=== PATIENT | female | born 1975 | race Caucasian/White ===

== ENCOUNTER 2018-11-23 22:07 | Emergency (ER) | payer OTHER ==
[~2018-11-23] VITALS: Ht 167.6 cm; Wt 105.8 kg
[2018-11-23 22:19] VITALS: Ht 167.6 cm; Wt 105.8 kg
[2018-11-24] MEDS ORDERED: morphine 4 MG/ML VIAL IV STA (00:01)
[2018-11-24] MEDS ORDERED: SOD CHLORIDE 0.9% 1,000 ML IV STA (00:01)
[2018-11-24] MEDS ORDERED: ONDANSETRON 4 MG INJ IV STA (00:01)
--- NOTE | 2018-11-24 00:13 | ERD ---
ER Documentation Chief Complaint Chief Complaint PELVIC PAIN, VAG BLEEDING, CRAMPING X'S 1 DAY HPI 43-year-old female presents with complaint of vaginal bleeding and cramping for the past day. States that she has been through 20 pads since 8 AM this morning. States her last menstrual period was October 15 and she thinks that she is having her period now but is heavier than usual. States that she had surgery so she cannot get . Denies any lightheadedness, chest pain, fevers, chills, vomiting, diarrhea. History of hypertension. ROS All systems reviewed and are negative except as per history of present illness. Medications Home Meds Active Scripts Norethindrone (Aygestin) 5 Mg Tab, 5 MG PO TID for 30 Days, #60 TAB Take 5mg PO TID for 3 days, then 5mg PO BID for 3 weeks or until your electronic tester stops treatments. Prov:SIRILORENZOARMIDA 11/24/18 Allergies Allergies: Coded Allergies: No Known Drug Allergies (Verified Allergy, Mild, 04/02/11) PMhx/Soc History of Surgery: Yes (CSECTION; HERNIA; TUBAL LIGATION) Anesthesia Reaction: No Hx Neurological Disorder: No Hx Respiratory Disorders: No Hx Cardiac Disorders: No Hx Psychiatric Problems: No Hx Miscellaneous Medical Probl: No Hx Alcohol Use: No Hx Substance Use: No Hx Tobacco Use: No Smoking Status: Never smoker FmHx Family History: No diabetes, No coronary disease, No other Physical Exam Vitals Vital Signs Date Temp Pulse Resp B/P (MAP) Pulse Ox O2 O2 Flow FiO2 Time Delivery Rate 11/24/18 97.8 63 18 134/84 97 05:46 (101) 11/24/18 98.0 61 159/81 99 Room Air 04:04 (107) 11/23/18 99.2 88 18 173/79 98 22:19 (110) Physical Exam Const: No acute distress Head: Atraumatic Eyes: Normal Conjunctiva ENT: Normal External Ears, Nose and Mouth. Neck: Full range of motion. No meningismus. Resp: Clear to auscultation bilaterally Cardio: Regular rate and rhythm, no murmurs Abd: Abdomen is diffusely tender to palpation with guarding especially in the lower right lower left quadrants. Skin: No petechiae or rashes Back: No midline or flank tenderness Ext: No cyanosis, or edema Neur: Awake and alert Psych: Normal Mood and Affect Pelvic Exam: Copper Plate Lithographer present Abdomen: Nontender External Genitalia: Normal Skin Speculum: Normal vaginal mucosa. Blood noted pooling in the cervical area. Os is closed. Bimanual: No adnexal masses or tenderness, No CMT Result Diagram: 11/24/18 0023 11/24/18 0023 Results 24 hrs Laboratory Tests Test 11/24/18 00:23 11/24/18 00:24 White Blood Count 10.5 10^3/ul Red Blood Count 4.44 10^6/ul Hemoglobin 12.2 g/dl Hematocrit 37.8 % Mean Corpuscular Volume 85.1 fl Mean Corpuscular Hemoglobin 27.5 pg Mean Corpuscular Hemoglobin Concent 32.3 g/dl Red Cell Distribution Width 15.6 % Platelet Count 294 10^3/UL Mean Platelet Volume 9.6 fl Immature Granulocytes % 0.300 % Neutrophils % 77.1 % Lymphocytes % 13.9 % Monocytes % 7.0 % Eosinophils % 1.4 % Basophils % 0.3 % Nucleated Red Blood Cells % 0.0 /100WBC Immature Granulocytes # 0.030 10^3/ul Neutrophils # 8.1 10^3/ul Lymphocytes # 1.5 10^3/ul Monocytes # 0.7 10^3/ul Eosinophils # 0.2 10^3/ul Basophils # 0.0 10^3/ul Nucleated Red Blood Cells # 0.0 10^3/ul Urine Test NEGATIVE Sodium Level 138 mmol/L Potassium Level 3.8 mmol/L Chloride Level 104 mmol/L Carbon Dioxide Level 26 mmol/L Anion Gap 8 Blood Urea Nitrogen 11 mg/dl Creatinine 0.47 mg/dl Est Glomerular Filtrat Rate mL/min > 60 mL/min Glucose Level 112 mg/dl Hemoglobin A1c 5.8 % Calcium Level 8.6 mg/dl Total Bilirubin 0.8 mg/dl Direct Bilirubin 0.00 mg/dl Indirect Bilirubin 0.8 mg/dl Aspartate Amino Transf (AST/SGOT) 17 IU/L Alanine Aminotransferase (ALT/SGPT) 24 IU/L Alkaline Phosphatase 48 IU/L Total Protein 7.0 g/dl Albumin 4.2 g/dl Globulin 2.80 g/dl Albumin/Globulin Ratio 1.50 Lipase 65 U/L Thyroid Stimulating Hormone (TSH) 1.210 MIU/L Urine Color YELLOW Urine Clarity SLIGHTLY CLOUDY Urine pH 6.0 Urine Specific [place] 1.015 Urine Ketones NEGATIVE mg/dL Urine Nitrite NEGATIVE mg/dL Urine Bilirubin NEGATIVE mg/dL Urine Urobilinogen NEGATIVE mg/dL Urine Leukocyte Esterase NEGATIVE Kade/ul Urine Microscopic RBC > 182 /HPF Urine Microscopic WBC 4 /HPF Urine Mucus FEW /HPF Urine Hemoglobin 3+ mg/dL Urine Glucose NEGATIVE mg/dL Urine Total Protein NEGATIVE mg/dl Current Medications Medications Dose Sig/Kraig Start Time Status Last (Trade) Ordered Route PRN Stop Time Admin Dose Reason Admin Sodium 1,000 ml @ Q1H STAT 11/24/18 DC 11/24/18 Chloride 1,000 mls/hr IV 00:01 01:16 11/24/18 01:00 Morphine 4 mg ONCE STAT 11/24/18 DC 11/24/18 Sulfate IV 00:01 01:10 (morphine) 11/24/18 00:05 Ondansetron 4 mg ONCE STAT 11/24/18 DC 11/24/18 HCl (Zofran IV 00:01 01:09 Inj) 11/24/18 00:05 Ibuprofen 600 mg ONCE ONCE 11/24/18 DC 11/24/18 (Motrin) PO 00:30 01:09 11/24/18 00:31 IV Flush 10 ml STK-MED 11/24/18 DC (NS 10 ml) ONCE .ROUTE 01:23 11/24/18 01:24 Sodium 100 ml @ ud STK-MED 11/24/18 DC Chloride ONCE .ROUTE 01:23 11/24/18 01:24 Iohexol 150 ml STK-MED 11/24/18 DC (Omnipaque ONCE .ROUTE 01:23 300mg/ ml) 11/24/18 01:24 Procedures/MDM DIAGNOSTIC IMAGING REPORT Patient: MIRANDA FORTE : 1975 Age: 43 Sex: F MR #: [id number] DOS: 11/24/18 0001 Ordering MD: ARMIDA WOODS Location: E Room/Bed: PROCEDURE: CT Abdomen and pelvis with contrast. CLINICAL INDICATION: Abdominal pain. TECHNIQUE: CT scan of the abdomen and pelvis with contrast was performed on a multi-detector high-resolution CT scanner. The patient was scanned following the uncomplicated administration of 100 cc of Omnipaque 300 intravenous contrast. Coronal and sagittal reformatted images were obtained from the axial source images. Images were reviewed on a high-resolution PACS workstation. DICOM images are available. One or more of the following dose reduction techniques were used: - Automated exposure control. - Adjustment of the mA and/or kV according to patient size. - Use of iterative reconstruction technique. Exam CTD/vol = 22.70 mGy. Total exam DLP = 1510.75 mGy-cm. COMPARISON: None. FINDINGS: Evaluation of the lung bases demonstrates minimal bibasilar atelectasis. Abdomen: The liver is normal in size. There is no focal mass or dilatation of the biliary tree. The gallbladder is not distended. The spleen, pancreas and bilateral adrenal glands are within normal limits. Bilateral kidneys are normal in size with symmetric enhancement. There is no focal mass, hydronephrosis or hydroureter. There is no retroperitoneal adenopathy. The abdominal aorta is of normal caliber. There is no abnormal bowel wall thickening or distension. There is no bowel obstruction or free air. A normal appendix is identified. There is no diverticulosis or diverticulitis. There is no ascites. Pelvis: The bladder is unremarkable. There is heterogeneous decreased attenuation within the lower endocervical canal. There is no significant pelvic adenopathy or free fluid. Evaluation of the osseous structures demonstrates no suspicious lytic or blastic lesion. IMPRESSION: Heterogeneous decreased attenuation within the lower endocervical canal suggestive of blood/blood clots or mass. Clinical correlation is needed. Otherwise no acute abnormality identified within the abdomen and pelvis. .Guevara Da Silva MD, MD Date Time Electronically viewed and signed by .Guevara Da Silva MD, MD on 11/24/2018 02:29 .T/ CC: ARMIDA WOODS [id number] DIAGNOSTIC IMAGING REPORT Patient: MIRANDA FORTE : 1975 Age: 43 Sex: F MR #: [id number] DOS: 11/24/18 0001 Ordering MD: ARMIDA WOODS Location: FT Room/Bed: PROCEDURE: US Pelvis. CLINICAL INDICATION: Pelvic pain TECHNIQUE: Multiple sonographic images of the pelvis were obtained utilizing a transabdominal and endovaginal technique. The images were reviewed on a PACS workstation. COMPARISON: None. FINDINGS: The uterus measures 6.0 x 3.2 x 3.9 cm. Heterogeneous appearance of the endome trium which measures 2.1 cm thickness. There is trace fluid within the endometrial canal. No abnormal vascularity is seen on color-flow imaging. Bilateral ovaries not visualized. No adnexal lesions identified. No pelvic free fluid. IMPRESSION: 1. Heterogeneous appearance of the endometrium measuring 2.1 cm thickness, nonspecific. Trace fluid within the endometrial cavity. 2. Ovaries not visualized. No pelvic free fluid. RPTAT: [facility] Physician Audrey Date Time Electronically viewed and signed by Physician Audrey on 11/24/2018 02:08 xB/ CC: ARMIDA WOODS [id number] MDM: Given patient's presentation of acute pelvic pain decision was made to order CT of pelvis with contrast. Results are within normal limits. Because of patient's bleeding, ultrasound of pelvis was ordered and showed endometrial thickening but no other pathology. Patient's vitals are stable throughout the ER course and exhibit no signs of symptomatic anemia or shock. However, given patient's complaint of going through 20 pads since 8 AM the substantial amount of blood seen on the pelvic exam in the vaginal area, I decided to consult with the OB on-call Dr. Arana. Dr Arana came and assessed the patient and stated patient would be fit for discharge with a several week course of Aygestin and she should need to follow-up with her OB for endometrial biopsy. In addition, Dr. Arana wanted to tests patient's TSH, prolactin, and A1c but stated patient would be fit for discharge before results would be available. I related to patient that she needed to follow-up with OB as soon as possible for endometrial biopsy and patient agreed to this and stated that she would. I have low suspicion for symptomatic anemia, shock, ectopic , ovarian torsion, PID, tubo-ovarian abscess, uterine prolapse, ovarian cancer, uterine cancer, nephrolithiasis, pyelonephritis, appendicitis, diverticulitis, bowel obstruction, perirectal abscess. In addition, I recommended the patient to take [id number] iron is they could counteract any future anemia. At this time, patient is stable for discharge and outpatient management. I have instructed the patient to follow-up with his/her primary care physician in 1-2 days. I have discussed with the patient the possibility of needing to see a specialist for further workup and imaging studies if symptoms persist. I have instructed the patient to promptly return to the ER for any new or worsening symptoms including but not limited to increased pain, fever, nausea, vomiting, weakness or LOC. The patient and/or family expressed understanding of and agreement with this plan. All questions were answered. Home care instructions were provided. DISCLAIMER: Inadvertent spelling and grammatical errors are likely due to EHR/dictation software use and do not reflect on the overall quality of patient care. Also, please note that the electronic time recorded on this note does not necessarily reflect the actual time of the patient encounter. Departure Diagnosis: Primary Impression: Menorrhagia Menorrahagia type: with regular cycle Qualified Codes: N92.0 - Excessive and frequent menstruation with regular cycle Additional Impression: Acute pain in female pelvis Condition: ARMIDA Grover Nov 24, 2018 00:13
[2018-11-24] MEDS ORDERED: IBUPROFEN 600 MG TAB PO ONE (00:30)
[2018-11-24] MEDS ORDERED: IOHEXOL 300MG/ML 150 ML BTL ONE (01:23)
[2018-11-24] MEDS ORDERED: SOD CHLORIDE 0.9% 100 ML ONE (01:23)
[2018-11-24] MEDS ORDERED: NORE5TAB15 PO (04:54)
[2018-11-24 05:46] VITALS: BP 134/84; PULSE 63; RESP 18
--- NOTE | 2018-11-24 13:51 | CONS ---
Assessment/Plan Assessment/Plan Hospital Course (Demo Recall) Menometrorrhagia Abdominal pain, cramps Symptoms appears to be related to perimenopausal anovulation, cannot rule out thyroid abnormalities since the patient complains of also excess weight gain At this time patient hemodynamically stable. Bleeding significantly subsided. She was ambulatory without any symptom. Her vitals are stable. Hemoglobin within normal limits. Patient does not appear to be in any distress. Patient will be discharged home with prescription with Aygestin 5 mg 3 times daily for 3 days and then twice a day with a follow-up within 2 to 3 days with primary PRINCIPAL ACCOUNT CLERK office. Is a candidate for endometrial biopsy. At risk for endometrial cancer due to body habitus as well as premenopausally status and history of irregular menopausal bleeding. Patient verbalized understanding. Advised to take iron twice a day with stool softener Consultation Date/Type/Reason Admit Date/Time Late entry note for exam done for November 24, 2018 I was consulted by ED physician emergency veterinary assistant for PRINCIPAL ACCOUNT CLERK evaluation Date of Consultation: Nov 24, 2018 Type of Consult PRINCIPAL ACCOUNT CLERK evaluation Reason for Consultation Heavy vaginal bleeding Date/Time of Note DATE: 11/24/18 TIME: 13:40 Hx of Present Illness 43-year-old G6, P3 obese female presented to emergency room with complaint of cramps and very heavy vaginal bleeding started since yesterday. Patient reports had been changing pads every 30 minutes. She reports history of irregular cycles. Cycles had been between 4 to 7 days in a while. Also complaining of excess weight gain although has been trying to lose weight with the diet and exercise. Denies any shortness of breath or chest pain, dizziness lightheadedness. Never had any evaluation for irregular menstrual bleeding including an atrial biopsy. Never been tested for thyroid abnormality. She was seen by PA in the emergency room and during speculum examination noted to have heavy vaginal bleeding. I was called for PRINCIPAL ACCOUNT CLERK consultation. Had a pelvic ultrasound that consistent shows heterogeneous endometrium with thickened endometrial lining and some fluid inside the uterine cavity. Adnexa normal. No other pathology noted. When I arrived and assessed the patient patient appeared to be in no acute distress and was comfortable. She was ambulating and denied any symptom. She reported bleeding decreased. She reported she had cramps and heavy bleeding with passing very small blood clots that had been subsided for the past 1 to 2- hour. Constitutional: no complaints Eyes: no complaints ENT: no complaints Respiratory: no complaints Cardiovascular: no complaints Gastrointestinal: no complaints Genitourinary: bleeding; No no complaints, No dysuria, No discharge, No flank pain, No hematuria, No other Musculoskeletal: no complaints; No back pain, No bone/joint pain, No neck pain, No restricted range of motion, No swelling, No other Skin: no complaints; No bruising, No erythema, No laceration, No pruritis, No rash, No skin lesions, No other Neurologic: No no complaints, No confusion, No dizziness, No focal-weakness, No headache, No syncope, No seizure, No other Lymphatic: No no complaints, No adenopathy, No tender nodes, No lymphadema, No other Psychological: No no complaints, No nl mood/affect, No anxiety, No confusion, No depression, No suicidal, No other Immunologic: No no complaints, No immunodeficiency, No pruritis, No rhinitis, No urticaria, No other Additional Comments PROCEDURE: CT Abdomen and pelvis with contrast. CLINICAL INDICATION: Abdominal pain. TECHNIQUE: CT scan of the abdomen and pelvis with contrast was performed on a multi-detector high-resolution CT scanner. The patient was scanned following the uncomplicated administration of 100 cc of Omnipaque 300 intravenous contrast. Coronal and sagittal reformatted images were obtained from the axial source images. Images were reviewed on a high-resolution PACS workstation. DICOM images are available. One or more of the following dose reduction techniques were used: - Automated exposure control. - Adjustment of the mA and/or kV according to patient size. - Use of iterative reconstruction technique. Exam CTD/vol = 22.70 mGy. Total exam DLP = 1510.75 mGy-cm. COMPARISON: None. FINDINGS: Evaluation of the lung bases demonstrates minimal bibasilar atelectasis. Abdomen: The liver is normal in size. There is no focal mass or dilatation of the biliary tree. The gallbladder is not distended. The spleen, pancreas and bilateral adrenal glands are within normal limits. Bilateral kidneys are normal in size with symmetric enhancement. There is no focal mass, hydronephrosis or hydroureter. There is no retroperitoneal adenopathy. The abdominal aorta is of normal caliber. There is no abnormal bowel wall thickening or distension. There is no bowel obstruction or free air. A normal appendix is identified. There is no diverticulosis or diverticulitis. There is no ascites. Pelvis: The bladder is unremarkable. There is heterogeneous decreased attenuation within the lower endocervical canal. There is no significant pelvic adenopathy or free fluid. Evaluation of the osseous structures demonstrates no suspicious lytic or blastic lesion. IMPRESSION: Heterogeneous decreased attenuation within the lower endocervical canal suggestive of blood/blood clots or mass. Clinical correlation is needed. Otherwise no acute abnormality identified within the abdomen and pelvis. PROCEDURE: US Pelvis. CLINICAL INDICATION: Pelvic pain TECHNIQUE: Multiple sonographic images of the pelvis were obtained utilizing a transabdominal and endovaginal technique. The images were reviewed on a PACS workstation. COMPARISON: None. FINDINGS: The uterus measures 6.0 x 3.2 x 3.9 cm. Heterogeneous appearance of the endometrium which measures 2.1 cm thickness. There is trace fluid within the endometrial canal. No abnormal vascularity is seen on color-flow imaging. Bilateral ovaries not visualized. No adnexal lesions identified. No pelvic free fluid. IMPRESSION: 1. Heterogeneous appearance of the endometrium measuring 2.1 cm thickness, nonspecific. Trace fluid within the endometrial cavity. 2. Ovaries not visualized. No pelvic free fluid. RPTAT: [facility] x-Josegermán Rojas, Physician Date Time Past Medical History Past medical history: 1. 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 Last Pap smear February 2018 and was normal. 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 Prov:ARMIDA WOODS 11/24/18 Allergies: Coded Allergies: No Known Drug Allergies (Verified Allergy, Mild, 04/02/11) Past Surgical History As above History of x3 and BTL in the last Family History Significant Family History: diabetes (Diabetes in father mother. Hypercholesterolemia and family as well as heart attack) Social History Alcohol Use: none Smoking Status: Never smoker Drug Use: none Exam/Review of Systems Exam Vitals Vital Signs Date Temp Pulse Resp B/P (MAP) Pulse Ox O2 O2 Flow FiO2 Time Delivery Rate 11/24/18 97.8 63 18 134/84 97 05:46 (101) 11/24/18 Room Air 04:04 Constitutional: alert, oriented, well developed Psych: no complaints, nl mood/affect Head: normocephalic, atraumatic Eyes: nl conjunctiva, EOMI, nl lids ENMT: nl external ears & nose, nl lips & teeth, nl nasal mucosa & septum Neck: supple, non-tender Respiratory: clear to auscultation, normal air movement Cardiovascular: regular rate and rhythm, nl pulses Gastrointestinal: soft, nl liver, spleen, non-tender, other (External genitalia within normal limits, sterile speculum examination: Cervix appears normal. No abnormal vaginal cervical lesion noted. Scant blood in the vault noted. Bimanual examination: Uterus about 12 cm size no fullness or tenderness in adn exa. Limited exam due to patient's body habitus) Neurological: PLANT CHIEF II-XII intact, nl mental status, nl speech Skin: nl turgor Results Result Diagram: 11/24/18 0023 11/24/18 0023 Results 24hrs Laboratory Tests Test 11/24/18 00:23 11/24/18 00:24 White Blood Count 10.5 Red Blood Count 4.44 Hemoglobin 12.2 Hematocrit 37.8 Mean Corpuscular Volume 85.1 Mean Corpuscular Hemoglobin 27.5 L Mean Corpuscular Hemoglobin Concent 32.3 Red Cell Distribution Width 15.6 H Platelet Count 294 Mean Platelet Volume 9.6 Immature Granulocytes % 0.300 Neutrophils % 77.1 H Lymphocytes % 13.9 L Monocytes % 7.0 Eosinophils % 1.4 Basophils % 0.3 Nucleated Red Blood Cells % 0.0 Immature Granulocytes # 0.030 Neutrophils # 8.1 H Lymphocytes # 1.5 Monocytes # 0.7 Eosinophils # 0.2 Basophils # 0.0 Nucleated Red Blood Cells # 0.0 Urine Test NEGATIVE Sodium Level 138 Potassium Level 3.8 Chloride Level 104 Carbon Dioxide Level 26 Anion Gap 8 Blood Urea Nitrogen 11 Creatinine 0.47 Est Glomerular Filtrat Rate mL/min > 60 Glucose Level 112 Hemoglobin A1c 5.8 Calcium Level 8.6 Total Bilirubin 0.8 Direct Bilirubin 0.00 Indirect Bilirubin 0.8 Aspartate Amino Transf (AST/SGOT) 17 Alanine Aminotransferase (ALT/SGPT) 24 Alkaline Phosphatase 48 Total Protein 7.0 Albumin 4.2 Globulin 2.80 Albumin/Globulin Ratio 1.50 Lipase 65 Thyroid Stimulating Hormone (TSH) 1.210 Urine Color YELLOW Urine Clarity SLIGHTLY CLOUDY A Urine pH 6.0 Urine Specific [place] 1.015 Urine Ketones NEGATIVE Urine Nitrite NEGATIVE Urine Bilirubin NEGATIVE Urine Urobilinogen NEGATIVE Urine Leukocyte Esterase NEGATIVE Urine Microscopic RBC > 182 H Urine Microscopic WBC 4 Urine Mucus FEW A Urine Hemoglobin 3+ H Urine Glucose NEGATIVE Urine Total Protein NEGATIVE TARSHA RODRIGUEZ MD Nov 24, 2018 13:51
== END 2018-11-24 05:47 | disposition home or self-care (01) ==
LOC: FTE 22:07
DX: N92.0 Excessive and frequent menstruation with regular cycle (principal)
CPT/HCPCS: 74177; 76830; 76856; 80053; 81001; 83036; 83690; 84146; 84443; 84703; 85025; 87591; 96374; 96375; J2270; J2405; J7030; Q9967; Z7502; Z7610